=== PATIENT | female | born 1935 | race Caucasian/White ===

== ENCOUNTER → 2016-09-09 | Outpatient (CLI) | payer MEDICARE ==
[~2016-09-09] MED LIST: AMIO200T2 PO; ATOR40TA64 PO; BACL10TA PO; DABI150C PO; ESOM40CA PO; FLUO-137 PO; FURO20TA4 PO; GLIP5TAB11 PO; METO50TA5 PO; QUIN40TA PO
--- NOTE | 2016-09-09 08:56 | DI ---
Indication: ITS.REASON: I10 HYPERTENSION PROCEDURE: US RENAL DOPPLER: Encounter: Initial Comparison: None Findings: Scans of the kidneys demonstrate normal morphology. The right kidney measures 9.3 cm in length. The left kidney measures 10 cm in length. There is no collecting system dilatation, contour deforming mass, nephrolithiasis, or abnormal perinephric fluid collection. Color Doppler imaging demonstrates normal vascularization. Resistive indices from the intrarenal arteries in the upper, middle, and lower portions of the right kidney are mildly elevated. Resistive indices from the intrarenal arteries in the upper, middle, and lower portions of the left kidney are mildly elevated. Arterial waveforms are normal. Impression: 1. No evidence of hemodynamically significant renal arterial stenosis. 2. Nonspecific elevation of the resistive indices bilaterally is most commonly due to medical renal disease but can be due to a number of other causes including medications and acute tubular necrosis. .
== END ==
LOC: IMA 07:45
PROVIDERS: ATTEND Internal Medicine Cardiovascular Disease
DX: I10 Essential (primary) hypertension (principal)